=== PATIENT | male | born 1985 | race African-American/Black ===

== ENCOUNTER 2016-12-16 07:53 | Outpatient (CLI) | payer OTHER ==
[2016-12-16 09:31] LABS: ALT (SGPT) 26 U/L (0-55); AST (SGOT) 17 U/L (5-34); Albumin 4.6 g/dL (3.5-5.0); Alkaline Phosphatase 70 U/L (40-150); Anion Gap 15 mmol/L (10-20); BUN (Urea Nitrogen) 18 mg/dL (8.9-20.6); Bilirubin, Total Less than 0.3 mg/dL (0.2-1.2); Calc. Creatinine Clearance 0 mL/min (70-130); Calcium 10.3 mg/dL (7.8-10.44); Carbon Dioxide 25 mmol/L (22-29); Chloride 103 mmol/L (98-107); Cholesterol 254 mg/dL (< 200 Desired); Estimated GFR-MDRD 68; Globulin 3.1 g/dL (2.4-3.5); Glucose 116 mg/dL (70-105); HDL Cholesterol 42 mg/dL (>60 Neg Risk); LDL Cholesterol, Calculated 155 mg/dL; Potassium 4.1 mmol/L (3.5-5.1); Protein, Total 7.7 g/dL (6.0-8.3); Sodium 139 mmol/L (136-145); Triglycerides 284 mg/dL (Less than 150)
== END 2016-12-16 07:54 | disposition home or self-care (01) ==
LOC: MADLAB 07:53
PROVIDERS: ATTEND Family Medicine
DX: E78.2 Mixed hyperlipidemia (principal)
CPT/HCPCS: 36415; 80053; 80061

== ENCOUNTER 2017-02-25 07:50 | Outpatient (CLI) | payer OTHER ==
[2017-02-25 08:40] LABS: ALT (SGPT) 17 U/L (8-55); AST (SGOT) 13 U/L (5-34); Albumin 4.2 g/dL (3.5-5.0); Alkaline Phosphatase 61 U/L (40-150); Anion Gap 15 mmol/L (10-20); BUN (Urea Nitrogen) 16 mg/dL (8.9-20.6); Bilirubin, Total 0.3 mg/dL (0.2-1.2); Calc. Creatinine Clearance 0 mL/min (70-130); Calcium 9.5 mg/dL (7.8-10.44); Carbon Dioxide 23 mmol/L (22-29); Cardiac Risk 3.9 (Less than 4.5); Chloride 102 mmol/L (98-107); Cholesterol 182 mg/dL (< 200 Desired); Estimated GFR-MDRD 64; Globulin 3.2 g/dL (2.4-3.5); Glucose 146 mg/dL (70-105); HDL Cholesterol 47 mg/dL (>60 Neg Risk); LDL Cholesterol, Calculated 100 mg/dL; Potassium 3.6 mmol/L (3.5-5.1); Protein, Total 7.4 g/dL (6.0-8.3); Sodium 136 mmol/L (136-145); Triglycerides 174 mg/dL (Less than 150)
[2017-02-25 09:03] LABS: #Basophils 0.1 thou/uL (0.0-0.2); #Eosinphils 0.1 thou/uL (0.0-0.7); #Lymphocytes 2.5 thou/uL (1.20-3.40); #Monocytes 0.6 thou/uL (0.11-0.59); #Neutrophils 4.7 thou/uL (1.40-6.50); %Basophils 1.4 % (0.0-1.0); %Eosinophils 1.5 % (0.0-10.0); %Lymphocytes 30.9 % (21.0-51.0); %Monocytes 7.7 % (0.0-10.0); %Neutrophils 58.5 % (42.0-75.0); Hemoglobin 13.9 g/dL (14.0-18.0); Mean Corpuscular HGB CONC 33.3 g/dL (32.0-36.0); Mean Corpuscular Hemoglobin 31.6 pg (27.0-31.0); Mean Corpuscular Volume 94.8 fl (80.0-94.0); Mean Platelet Volume 7.9 fL (7.4-10.4); Platelet Count 231 thou/uL (130-400); RBC Distribution Width 12.6 % (11.5-14.5); Red Blood Cell (RBC) Count 4.39 mill/uL (4.70-6.10)
[2017-02-28 05:20] LABS: Tacrolimus 7.3 ng/mL (2.0-20.0)
== END 2017-02-25 07:51 | disposition home or self-care (01) ==
LOC: MADLAB 07:50
PROVIDERS: ATTEND Internal Medicine Nephrology
DX: I10 Essential (primary) hypertension (principal); Z94.0 Kidney transplant status
CPT/HCPCS: 36415; 80053; 80061; 80197; 83970; 85025

== ENCOUNTER 2017-05-02 12:51 | Outpatient (CLI) | payer OTHER ==
[2017-05-02 13:22] LABS: ALT (SGPT) 21 U/L (8-55); AST (SGOT) 14 U/L (5-34); Albumin 4.3 g/dL (3.5-5.0); Alkaline Phosphatase 53 U/L (40-150); Anion Gap 13 mmol/L (10-20); BUN (Urea Nitrogen) 21 mg/dL (8.9-20.6); Bilirubin, Total 0.6 mg/dL (0.2-1.2); Calc. Creatinine Clearance 0 mL/min (70-130); Calcium 9.8 mg/dL (7.8-10.44); Carbon Dioxide 25 mmol/L (22-29); Chloride 106 mmol/L (98-107); Estimated GFR-MDRD 61; Globulin 3.6 g/dL (2.4-3.5); Glucose 108 mg/dL (70-105); Potassium 4.4 mmol/L (3.5-5.1); Protein, Total 7.9 g/dL (6.0-8.3); Sodium 140 mmol/L (136-145)
[2017-05-02 13:48] LABS: Lymphocytes 28 % (21-51); MDiff Complete? YES; Mean Corpuscular HGB CONC 32.5 g/dL (32.0-36.0); Mean Corpuscular Hemoglobin 30.2 pg (27.0-31.0); Mean Corpuscular Volume 92.9 fl (80.0-94.0); Mean Platelet Volume 7.9 fL (7.4-10.4); Monocytes 4 % (0-10); Neutrophil 68 % (42-75); PLT Morphology Comment Appears Adequate; Platelet Count 244 thou/uL (130-400); RBC Distribution Width 12.1 % (11.5-14.5); RBC Morphology Normal; Red Blood Cell (RBC) Count 4.64 mill/uL (4.70-6.10); White Blood Cell (WBC) Count 6.4 thou/uL (4.8-10.8)
[2017-05-06 22:09] LABS: Tacrolimus 11.4 ng/mL (2.0-20.0)
== END 2017-05-02 12:52 | disposition home or self-care (01) ==
LOC: MADLAB 12:51
PROVIDERS: ATTEND Internal Medicine Nephrology
DX: E55.9 Vitamin D deficiency, unspecified (principal); Z94.0 Kidney transplant status
CPT/HCPCS: 36415; 80053; 80197; 82306; 83970; 85025

== ENCOUNTER 2017-05-31 08:19 | Outpatient (CLI) | payer OTHER ==
[2017-06-03 19:12] LABS: Tacrolimus 7.8 ng/mL (2.0-20.0)
== END 2017-05-31 08:20 | disposition home or self-care (01) ==
LOC: MADLAB 08:19
PROVIDERS: ATTEND Internal Medicine Nephrology
DX: Z48.816 Encounter for surgical aftercare following surgery on the genitourinary system (principal); Z94.0 Kidney transplant status
CPT/HCPCS: 36415; 80197

== ENCOUNTER 2017-06-09 21:34 | Emergency (ER) | payer OTHER ==
[2017-06-09] MEDS ORDERED: Morphine Sulfate 2 MG/ML SYRINGE ONE (22:10)
[2017-06-09] MEDS ORDERED: Diazepam 5 MG TAB ONE (22:10)
[2017-06-09] MEDS ORDERED: Ondansetron ODT 4 MG TAB ONE (22:10)
== END 2017-06-09 22:46 | disposition home or self-care (01) ==
LOC: MADERS 21:34
DX: K03.81 Cracked tooth (principal); K02.9 Dental caries, unspecified; I10 Essential (primary) hypertension; F41.9 Anxiety disorder, unspecified; N19 Unspecified kidney failure; Z79.899 Other long term (current) drug therapy
CPT/HCPCS: 96372; J2270; Q0162

== ENCOUNTER 2017-09-25 19:14 | Emergency (ER) | payer OTHER, SELFPAY ==
[2017-09-25] MEDS ORDERED: Benzonatate 100 MG CAP ONE (19:46)
[2017-09-25] MEDS ORDERED: Azithromycin 250 MG TAB ONE (19:46)
== END 2017-09-25 19:57 | disposition home or self-care (01) ==
LOC: MADERS 19:14
DX: J02.0 Streptococcal pharyngitis (principal); J20.9 Acute bronchitis, unspecified; I10 Essential (primary) hypertension; F41.9 Anxiety disorder, unspecified; Z79.899 Other long term (current) drug therapy
CPT/HCPCS: 99283

== ENCOUNTER 2018-07-05 21:23 | Emergency (ER) | payer OTHER ==
[2018-07-05] MEDS ORDERED: AMOXicillin 250 MG CAP ONE (21:50)
[2018-07-05] MEDS ORDERED: HYDROcodone/Acetaminophen 5/325 mg Tablet ONE (21:50)
== END 2018-07-05 22:16 | disposition home or self-care (01) ==
LOC: MADERS 21:23
DX: J02.9 Acute pharyngitis, unspecified (principal); I12.9 Hypertensive chronic kidney disease with stage 1 through stage 4 chronic kidney disease, or unspecified chronic kidney disease; N18.9 Chronic kidney disease, unspecified; F41.9 Anxiety disorder, unspecified; Z79.899 Other long term (current) drug therapy
CPT/HCPCS: 99283

== ENCOUNTER 2018-12-07 07:39 | Emergency (ER) | payer OTHER ==
[2018-12-07] MEDS ORDERED: Tetracaine 0.5% OPHTH SOLN/PF 4 ML BOT ONE (08:19)
== END 2018-12-07 08:50 | disposition home or self-care (01) ==
LOC: MADERS 07:39
DX: B30.9 Viral conjunctivitis, unspecified (principal); I10 Essential (primary) hypertension; F41.9 Anxiety disorder, unspecified; Z79.899 Other long term (current) drug therapy
CPT/HCPCS: 99282

== ENCOUNTER 2018-12-09 16:23 | Emergency (ER) | payer OTHER ==
[2018-12-09] MEDS ORDERED: HYDROcodone/Acetaminophen 5/325 mg Tablet ONE (16:48)
[2018-12-09] MEDS ORDERED: Erythromycin Base 0.5% Ophth Oint 3.5 gm Tube ONE (16:49)
[2018-12-09] MEDS ORDERED: Amoxicillin/Potassium Clav 875 MG TAB ONE (16:49)
== END 2018-12-09 17:00 | disposition home or self-care (01) ==
LOC: MADERS 16:23
DX: H10.022 Other mucopurulent conjunctivitis, left eye (principal); I10 Essential (primary) hypertension; F41.9 Anxiety disorder, unspecified
CPT/HCPCS: 99282

== ENCOUNTER 2019-01-08 09:42 | Emergency (ER) | payer OTHER ==
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
== END 2019-01-08 12:40 | disposition home or self-care (01) ==
LOC: MADERS 09:42
DX: S50.01XA Contusion of right elbow, initial encounter (principal); F41.9 Anxiety disorder, unspecified; I12.9 Hypertensive chronic kidney disease with stage 1 through stage 4 chronic kidney disease, or unspecified chronic kidney disease; N18.9 Chronic kidney disease, unspecified; Z79.899 Other long term (current) drug therapy; V43.52XA Car driver injured in collision with other type car in traffic accident, initial encounter

== ENCOUNTER 2020-07-27 11:08 | Outpatient (CLI) | payer SELFPAY ==
[2020-07-27 11:42] LABS: Band 2 % (5-11); Eosinophils 2 % (0-10); Hemoglobin 15.7 g/dL (14.0-18.0); Lymphocytes 23 % (21-51); MDiff Complete? YES; Mean Corpuscular Hemoglobin 29.8 pg (27.0-31.0); Mean Platelet Volume 7.3 fL (7.4-10.4); Monocytes 4 % (0-10); Neutrophil 55 % (42-75); Platelet Count 311 thou/uL (130-400); Platelet Morphology Comment Appears Adequate; RBC Distribution Width 12.7 % (11.5-14.5); RBC Morphology Normal; Reactive Lymphocytes 14 % (0-10); Red Blood Cell (RBC) Count 5.27 mill/uL (4.70-6.10); White Blood Cell (WBC) Count 8.2 thou/uL (4.8-10.8)
[2020-07-27 11:45] LABS: ALT (SGPT) 20 U/L (8-55); AST (SGOT) 15 U/L (5-34); Albumin 3.7 g/dL (3.5-5.0); Alkaline Phosphatase 62 U/L (40-110); Anion Gap 12 mmol/L (10-20); BUN (Urea Nitrogen) 13 mg/dL (8.9-20.6); Bilirubin, Total 0.4 mg/dL (0.2-1.2); Calc. Creatinine Clearance 0 mL/min (70-130); Calcium 9.4 mg/dL (7.8-10.44); Carbon Dioxide 30 mmol/L (22-29); Chloride 102 mmol/L (98-107); Estimated GFR-MDRD 66; Globulin 3.8 g/dL (2.4-3.5); Glucose 97 mg/dL (70-105); Magnesium 1.6 mg/dL (1.6-2.6); Protein, Total 7.5 g/dL (6.0-8.3); Sodium 140 mmol/L (136-145)
== END 2020-07-27 11:09 | disposition home or self-care (01) ==
LOC: MADLAB 11:08
PROVIDERS: ATTEND Internal Medicine Nephrology
DX: Z48.22 Encounter for aftercare following kidney transplant (principal)
CPT/HCPCS: 36415; 80053; 80158; 83735; 83970; 85025

== ENCOUNTER 2021-06-15 07:15 | Emergency (ER) | payer BC, SELFPAY ==
[2021-06-15] MEDS ORDERED: Acetaminophen 500 MG TAB ONE (08:05)
== END 2021-06-15 08:10 | disposition home or self-care (01) ==
LOC: MADERS 07:15
DX: S09.90XA Unspecified injury of head, initial encounter (principal); I10 Essential (primary) hypertension; Z79.899 Other long term (current) drug therapy; W22.8XXA Striking against or struck by other objects, initial encounter
CPT/HCPCS: 99283

== ENCOUNTER 2023-04-27 12:45 | Emergency (ER) | payer BC | END 2023-04-27 13:23 | disposition home or self-care (01) | LOC: MADERS 12:45 | DX: T20.26XA Burn of second degree of forehead and cheek, initial encounter (principal); T20.24XA Burn of second degree of nose (septum), initial encounter; Z79.899 Other long term (current) drug therapy; E78.00 Pure hypercholesterolemia, unspecified; X08.8XXA Exposure to other specified smoke, fire and flames, initial encounter | CPT/HCPCS: 99283 ==

== ENCOUNTER 2025-07-01 13:14 | Outpatient (CLI) | payer OTHER ==
[2025-07-01 13:35] LABS: Hematocrit 40.9 % (42.0-52.0); Hemoglobin 13.3 g/dL (14.0-18.0); MDiff Complete? YES; Mean Corpuscular Hemoglobin 31.1 pg (27.0-31.0); Mean Corpuscular Volume 95.8 fl (78.0-98.0); Platelet Count 280 10x3/uL (130-400); Red Blood Cell (RBC) Count 4.27 mill/uL (4.70-6.10); White Blood Cell (WBC) Count 8.0 10x3/uL (4.8-10.8)
[2025-07-01 13:39] LABS: Glucose, Urine (Dipstick) Negative (Negative); Leukocyte Negative (Negative); Protein, Urine (Dipstick) > or equal to 300 mg/dL (Neg-Trace); Specific Gravity, Urine 1.025 (1.005-1.030)
[2025-07-01 13:42] LABS: RBC/HPF None Seen HPF (0-3); WBC/HPF 0-3 HPF (0-3)
[2025-07-01 13:50] LABS: Anion Gap 14 mmol/L (10-20); BUN (Urea Nitrogen) 25 mg/dL (8.9-20.6); Calc. Creatinine Clearance 0 mL/min (70-130); Calcium 9.2 mg/dL (7.8-10.44); Carbon Dioxide 24 mmol/L (22-29); Chloride 106 mmol/L (98-107); Glucose 125 mg/dL (70-105); Magnesium 1.6 mg/dL (1.6-2.6); Potassium 4.7 mmol/L (3.5-5.1); Sodium 139 mmol/L (136-145)
[2025-07-02 00:07] LABS: Protein, Urine Random Quant 203.0 mg/dL (1-14)
== END 2025-07-01 13:15 | disposition home or self-care (01) ==
LOC: MADLAB 13:14
PROVIDERS: ATTEND Internal Medicine Nephrology
DX: E55.9 Vitamin D deficiency, unspecified (principal); Z94.0 Kidney transplant status
CPT/HCPCS: 36415; 80048; 80197; 81001; 82306; 82570; 83735; 83970; 84100; 84156; 85025

== ENCOUNTER 2025-09-26 15:04 | Outpatient (CLI) | payer OTHER ==
[2025-09-26 16:35] LABS: #Basophils 0.1 thou/uL (0.0-0.2); #Eosinophils 0.1 thou/uL (0.0-0.7); #Lymphocytes 1.7 thou/uL (1.20-3.40); #Monocytes 0.5 thou/uL (0.11-0.59); #Neutrophils 6.2 thou/uL (1.40-6.50); %Basophils 0.6 % (0.0-1.0); %Eosinophils 0.8 % (0.0-10.0); %Lymphocytes 20.2 % (21.0-51.0); %Monocytes 5.3 % (0.0-10.0); %Neutrophils 73.1 % (42.0-75.0); Hematocrit 38.4 % (42.0-52.0); Hemoglobin 12.6 g/dL (14.0-18.0); Mean Corpuscular Hemoglobin 31.9 pg (27.0-31.0); Mean Corpuscular Volume 97.0 fl (78.0-98.0); Platelet Count 238 10x3/uL (130-400); Red Blood Cell (RBC) Count 3.96 mill/uL (4.70-6.10); White Blood Cell (WBC) Count 8.5 10x3/uL (4.8-10.8)
[2025-09-26 16:41] LABS: Glucose, Urine (Dipstick) Negative (Negative); Leukocyte Negative (Negative); Protein, Urine (Dipstick) > or equal to 300 mg/dL (Neg-Trace); Specific Gravity, Urine 1.025 (1.005-1.030)
[2025-09-26 16:43] LABS: ALT (SGPT) 22 U/L (Less than 45); AST (SGOT) 22 U/L (11-34); Albumin 3.6 g/dL (3.1-4.5); Alkaline Phosphatase 36 U/L (40-110); Anion Gap 15 mmol/L (10-20); BUN (Urea Nitrogen) 22 mg/dL (8.9-20.6); Bilirubin, Total 0.3 mg/dL (0.3-1.2); Calc. Creatinine Clearance 0 mL/min (70-130); Calcium 9.3 mg/dL (7.8-10.44); Carbon Dioxide 22 mmol/L (22-29); Chloride 105 mmol/L (98-107); Globulin 3.3 g/dL (2.4-3.5); Glucose 123 mg/dL (70-105); Magnesium 1.6 mg/dL (1.6-2.6); Potassium 4.0 mmol/L (3.5-5.1); Sodium 138 mmol/L (136-145)
[2025-09-26 16:47] LABS: Bacteria/HPF Rare-Few HPF (None Seen); RBC/HPF 0-3 HPF (0-3); WBC/HPF None Seen HPF (0-3)
[2025-09-26 23:24] LABS: Protein, Urine Random Quant 212.0 mg/dL (1-14)
== END 2025-09-26 15:05 | disposition home or self-care (01) ==
LOC: MADLAB 15:04
PROVIDERS: ATTEND Internal Medicine Nephrology
DX: E55.9 Vitamin D deficiency, unspecified (principal); Z94.0 Kidney transplant status
CPT/HCPCS: 36415; 80053; 80197; 81001; 82306; 82570; 83735; 83970; 84100; 84156; 85025